=== PATIENT | female | born 1995 | race Caucasian/White ===

== ENCOUNTER 2017-01-16 03:46 | Emergency (ER) | payer SELFPAY ==
--- NOTE | ~2017-01-16 | ER ---
PATIENT'S NAME: DANIAL RICHARDS [facility] AGE: 21 Y [address] ROOM: [place] [address] LOCATION: ED ADMIT DATE: 01/16/2017 ER/Outpatient Report DISCHARGE DATE: 01/16/2017 FAMILY PHYSICIAN: PHYSICIAN, NO ATTENDING PHYSICIAN: Idris Argueta Admission date and time documented in medical record. I saw the patient at 0400 hours. CHIEF COMPLAINT: Right side flank pain. HISTORY OF PRESENT ILLNESS: This patient is a 21-year-old female who was woken from sleep about 2-3 hours prior to admission to the emergency room with severe right-sided flank pain and abdominal pain. No nausea, vomiting, or diarrhea. No urinary frequency, urgency, or dysuria. No back pain or spine pain. No chest pain or shortness of breath. No lightheadedness, dizziness, syncope, or near syncope. No fall or trauma. No recent colds, coughs, flus, fever, chills, or sweats. No headache, eyes, ears, nose, throat, neck, or spine pain. No joint or muscle swelling, redness, or pain. No skin eruptions or rash. No history of neuro changes or endocrine problems. Does have a history of anxiety and depression. HOME MEDICATIONS: None. ALLERGIES: NONE. SOCIAL HISTORY: Nonsmoker, nondrinker. Does use marijuana every other day. SIGNIFICANT PAST MEDICAL HISTORY: Anxiety, depression, and marijuana abuse. OPERATIONS: None. REVIEW OF SYSTEMS: All systems reviewed by me are negative with the exception of those discussed in the history of present illness. PHYSICAL EXAM: VITAL SIGNS: Temp 98, pulse 76, respirations 16, blood pressure 115/78, O2 saturation on room air is 99%. PATIENT'S NAME: DANIAL RICHARDS [facility] AGE: 21 Y [address] ROOM: [place] [address] LOCATION: [facility] ADMIT DATE: 01/16/2017 ER/Outpatient Report DISCHARGE DATE: 01/16/2017 FAMILY PHYSICIAN: PHYSICIAN, NO ATTENDING PHYSICIAN: Idris Argueta HEAD: Normocephalic. EYES, EARS, NOSE, AND THROAT: Clear. Mucous membranes moist. NECK: Negative. SPINE: Negative. LUNGS: Clear. No rales, rhonchi, or wheezes. HEART: Regular. Pulses are palpable. No chest wall or ribcage pain to palpation. ABDOMEN: Soft. Some tenderness in the right flank to palpation. No organomegaly or abnormal mass palpable. No true CVA tenderness. EXTREMITIES: Intact. NEUROVASCULAR: Intact. SKIN: Clear. LABORATORY DATA: White count is 9500, 66 segs, 24 lymphs, 8 monos, 1 eo, hemoglobin was 13.6, hematocrit 39.2, platelet count is 257,000. Urine showed 20-50 whites, 10-20 reds, 5-10 epithelial cells, many bacteria, 2+ amorphous material per high- powered field. Urine culture pending. Procalcitonin was less than 0.05. Lactate was 1.5. CMS was normal. Amylase and lipase were normal. CRP was normal less than 0.29. CT scan of the abdomen and pelvis was negative except for few loops of proximal jejunum with some mildly thickened wall, possible mild enteritis. There is no free fluid or free air. No ureteral stones. No gallstones. Normal appendix. No other solid organ problems. CT scan was read by Radiology, see dictated transcribed report. IMPRESSION: Right mid abdominal flank pain. Etiology uncertain. Most likely secondary to urinary tract infection. PLAN: The patient was given IV fluids, IV morphine, IV Zofran here in the emergency department. The patient dismissed home on Bactrim double strength b.i.d. #14, Pyridium 200 mg 3 times a day #15, [place] 5/325 as needed for pain #10. Push fluids, diet as tolerated. Empty bladder often. Rest and activity as tolerated. Follow up with personal physician as needed if no improvement. Discussion ensued with the patient concerning my findings and recommendations, she understands. MD ERWIN BABIN/modl PATIENT'S NAME: DANIAL RICHARDS [facility] AGE: 21 Y [address] ROOM: [place] [address] LOCATION: ED ADMIT DATE: 01/16/2017 ER/Outpatient Report DISCHARGE DATE: 01/16/2017 FAMILY PHYSICIAN: AUGUSTO JAIN ATTENDING PHYSICIAN: Idris Argueta /[id number] d: 01/16/17 1107 t: 01/16/17 1817, OUTPATIENT REPORT
[2017-01-16 04:27] LABS: BASOPHIL % 0.3 %; EOSINOPHIL # 0.1 K/uL (0.0-0.5); EOSINOPHIL % 1.4 %; HEMATOCRIT 39.2 % (33.0-46.0); HEMOGLOBIN 13.6 g/dL (11.0-15.0); IMMATURE GRANULOCYTE % 0.2 %; LYMPHOCYTE # 2.3 K/uL (0.8-4.0); LYMPHOCYTE % 23.9 %; MCH 31.7 pg (27.0-34.0); MCHC 34.7 gm/dL (32.0-36.5); MCV 91.4 fl (83.0-98.0); MONOCYTE # 0.8 K/uL (0.0-1.0); MONOCYTE % 8.2 %; NEUTROPHIL # (ANC) 6.3 K/uL (1.8-7.8); NRBC % 0 /100WBC (0-0.00); PLATELET COUNT 257 K/uL (150-450); RBC 4.29 M/uL (3.50-5.00); RDW-CV 11.8 % (11.9-14.6); WBC 9.5 K/uL (4.0-11.0)
[2017-01-16 04:45] LABS: BILIRUBIN URINE NEGATIVE (NEGATIVE); BLOOD URINE 250 /UL (NEGATIVE); COLOR URINE YELLOW (YELLOW); GLUCOSE URINE NEGATIVE (NEGATIVE); KETONE URINE NEGATIVE (NEGATIVE); LEUKOCYTES URINE 500 /UL (NEGATIVE); NITRITE URINE NEGATIVE (NEGATIVE); PROTEIN URINE 30 mg/dL (NEGATIVE); TURBIDITY URINE 2+ (CLEAR); UROBILINOGEN URINE NORMAL (NORMAL)
[2017-01-16 04:51] LABS: ALBUMIN 4.3 gm/dL (3.5-5.0); ALK PHOS 81 IU/L (33-138); ALT 14 IU/L (12-78); ANION GAP 13.8 (10.0-19.0); AST 13 IU/L (10-40); BLOOD UREA NITROGEN 13 mg/dL (6-24); CALCIUM 9.3 mg/dL (8.5-10.5); CHLORIDE 106 mMol/L (96-110); CO2 25 mMol/L (22-32); CREATININE 0.7 mg/dL (0.5-1.1); POTASSIUM 3.8 mMol/L (3.7-5.1); SODIUM 141 mMol/L (135-145); TOTAL BILIRUBIN 0.7 mg/dL (0.0-1.5); TOTAL PROTEIN 7.6 g/dL (6.0-8.4)
[2017-01-16 04:55] LABS: AMORPHOUS URINE 2+ (NEGATIVE); BACTERIA URINE MANY (NEGATIVE); WBC URINE 20-50 #/HPF (NEGATIVE)
== END 2017-01-16 05:23 | disposition disaster alternative care site (69) ==
LOC: GMED 03:46
PROVIDERS: Emergency Medicine
DX: R10.9 Unspecified abdominal pain (principal); F41.9 Anxiety disorder, unspecified; F32.9 Major depressive disorder, single episode, unspecified; F12.10 Cannabis abuse, uncomplicated
CPT/HCPCS: J2270; J2405; J7030; Q9967